=== PATIENT | female | born 1970 | race Caucasian/White ===

== ENCOUNTER 2017-05-06 07:00 | Outpatient (CLI) | payer OTHER | END 2017-05-06 07:03 | disposition home or self-care (01) | LOC: LAB 07:00 | DX: I10 Essential (primary) hypertension (principal); M54.5 Low back pain ==

== ENCOUNTER → 2017-05-09 | Outpatient (CLI) | payer OTHER ==
[~2017-05-09] VITALS: Ht 152.4 cm; Wt 56.7 kg
== END | disposition home or self-care (01) ==
LOC: PPHC 15:41
DX: D24.9 Benign neoplasm of unspecified breast (principal); N60.12 Diffuse cystic mastopathy of left breast; N60.11 Diffuse cystic mastopathy of right breast; Z00.00 Encounter for general adult medical examination without abnormal findings; E10.9 Type 1 diabetes mellitus without complications

== ENCOUNTER → 2017-06-19 | Outpatient (CLI) | payer OTHER ==
[~2017-06-19] MED LIST: GLIPIZIDE10 MG; METFORMIN HCL500 M2
== END | disposition home or self-care (01) ==
LOC: LAB 16:24
DX: K52.9 Noninfective gastroenteritis and colitis, unspecified (principal)

== ENCOUNTER → 2017-06-19 | Outpatient (CLI) | payer OTHER ==
[~2017-06-19] VITALS: Ht 152.4 cm; Wt 59.0 kg
== END | disposition home or self-care (01) ==
LOC: PPHC 15:00
DX: K52.89 Other specified noninfective gastroenteritis and colitis (principal)

== ENCOUNTER 2017-10-17 13:01 | Outpatient (CLI) | payer OTHER | END 2017-10-17 13:07 | disposition home or self-care (01) | LOC: MRI 13:01 | DX: M50.20 Other cervical disc displacement, unspecified cervical region (principal); M50.30 Other cervical disc degeneration, unspecified cervical region | CPT/HCPCS: 72141 ==

== ENCOUNTER 2017-10-20 08:52 | Outpatient (CLI) | payer OTHER | END 2017-10-20 10:29 | disposition home or self-care (01) | LOC: LAB 08:52 | DX: E03.8 Other specified hypothyroidism (principal); R41.89 Other symptoms and signs involving cognitive functions and awareness; R41.3 Other amnesia; F03.90 Unspecified dementia, unspecified severity, without behavioral disturbance, psychotic disturbance, mood disturbance, and anxiety ==

== ENCOUNTER 2018-01-12 10:13 | Outpatient (CLI) | payer OTHER | END 2018-01-12 16:26 | disposition home or self-care (01) | LOC: LAB 10:13 | DX: Z11.3 Encounter for screening for infections with a predominantly sexual mode of transmission (principal) ==

== ENCOUNTER 2019-06-22 10:12 | Outpatient (CLI) | payer OTHER | END 2019-06-22 10:16 | disposition home or self-care (01) | LOC: LAB 10:12 | DX: J11.1 Influenza due to unidentified influenza virus with other respiratory manifestations (principal) ==

== ENCOUNTER 2019-09-02 14:49 | Outpatient (CLI) | payer OTHER | END 2019-09-02 14:53 | disposition home or self-care (01) | LOC: LAB 14:49 | DX: Z20.828 Contact with and (suspected) exposure to other viral communicable diseases (principal) ==